=== PATIENT | male | born 1955 | race Caucasian/White ===

== ENCOUNTER → 2017-11-22 | Outpatient (CLI) | payer OTHER ==
[~2017-11-22] MED LIST: ASPI-496 PO; EZET10TA18 PO; INSU100I28 SQ-INSULIN; LISI-167 PO; METF850T PO; SIMV10TA3 PO
[2017-11-22 07:32] LABS: BASOPHILS # (AUTO) 0.04 x10^3/uL (0-0.1); BASOPHILS % (AUTO) 1 % (0-1); EOSINOPHILS # (AUTO) 0.28 x10^3/uL (0-0.4); EOSINOPHILS % (AUTO) 4 % (1-7); LYMPHOCYTES # (AUTO) 2.48 x10^3/uL (1-3.4); LYMPHOCYTES % (AUTO) 35 % (22-44); MD NO; MEAN CORPUSCULAR HEMOGLOBIN 29.5 pg (27.5-34.5); MEAN CORPUSCULAR HGB CONC 34.3 g/dL (33.2-36.2); MEAN CORPUSCULAR VOLUME 86.1 fL (81-97); MEAN PLATELET VOLUME 8.8 fL (7.4-10.4); MONOCYTES # (AUTO) 0.55 x10^3/uL (0.2-0.8); MONOCYTES % (AUTO) 8 % (2-9); NEUTROPHILS # (AUTO) 3.83 x10^3/uL (1.8-6.8); NEUTROPHILS % (AUTO) 53 % (42-75); PLATELET COUNT 182 x10^3/uL (130-400); RED BLOOD COUNT 5.24 x10^6/uL (4.38-5.82); RED CELL DISTRIBUTION WIDTH 14.4 % (9.4-14.8)
[2017-11-22 07:44] LABS: ALANINE AMINOTRANSFERASE 43 U/L (12-78); ALBUMIN 3.8 g/dL (3.4-5.0); ANION GAP 5 mmol/L (5-15); CALCIUM 9.5 mg/dL (8.5-10.1); CHLORIDE 108 mmol/L (98-107); CHOLESTEROL, TOTAL 172 mg/dL (140-239); CREATININE 1.07 mg/dL (0.7-1.3)
[2017-11-22 07:46] LABS: ALKALINE PHOSPHATASE 75 U/L (45-117); BILIRUBIN,TOTAL 0.5 mg/dL (0.2-1.0); CHOL/HDL RATIO 4.3; HDL CHOL % 23 % (26-37); HDL CHOLESTEROL (DIRECT) 40 mg/dL (40-60); LDL CHOLESTEROL,CALCULATED 59 mg/dL (54-169); LDL/HDL RATIO 1.5 (0.5-3.0); TRIGLYCERIDES 364 mg/dL (50-200); VLDL CHOLESTEROL 73 mg/dL (0-25)
[2017-11-22 08:40] LABS: HEMOGLOBIN A1C 8.7 % (4.2-6.3)
== END | disposition home or self-care (01) ==
LOC: LAB 07:09
PROVIDERS: ATTEND Family Medicine
DX: Z12.5 Encounter for screening for malignant neoplasm of prostate (principal); E11.65 Type 2 diabetes mellitus with hyperglycemia; E78.5 Hyperlipidemia, unspecified; I10 Essential (primary) hypertension
CPT/HCPCS: 36415; 80053; 80061; 82043; 83036; 84153; 84154; 85025; G0103

== ENCOUNTER → 2018-02-27 | Outpatient (CLI) | payer OTHER ==
[2018-02-27 07:43] LABS: ALANINE AMINOTRANSFERASE 44 U/L (12-78); ALBUMIN 3.9 g/dL (3.4-5.0); ANION GAP 10 mmol/L (5-15); CALCIUM 9.5 mg/dL (8.5-10.1); CHLORIDE 106 mmol/L (98-107); CREATININE 1.14 mg/dL (0.7-1.3)
[2018-02-27 07:45] LABS: ALKALINE PHOSPHATASE 84 U/L (45-117); BILIRUBIN,TOTAL 0.5 mg/dL (0.2-1.0); CHOL/HDL RATIO 5.7; CHOLESTEROL, TOTAL 226 mg/dL (140-239); HDL CHOL % 18 % (26-37); HDL CHOLESTEROL (DIRECT) 40 mg/dL (40-60); TOTAL PROTEIN 7.3 g/dL (6.4-8.2); TRIGLYCERIDES 719 mg/dL (50-200)
[2018-02-27 08:25] LABS: HEMOGLOBIN A1C 10.6 % (4.2-6.3)
== END | disposition home or self-care (01) ==
LOC: LAB 07:15
PROVIDERS: ATTEND Family Medicine
DX: E11.65 Type 2 diabetes mellitus with hyperglycemia (principal); E78.5 Hyperlipidemia, unspecified
CPT/HCPCS: 36415; 80053; 80061; 83036

== ENCOUNTER → 2018-03-19 | Outpatient (CLI) | payer OTHER | END | disposition home or self-care (01) | LOC: LAB 07:14 | PROVIDERS: ATTEND Family Medicine | DX: E11.65 Type 2 diabetes mellitus with hyperglycemia (principal) | CPT/HCPCS: 36415; 83519; 83525 ==

== ENCOUNTER → 2019-09-14 | Outpatient (CLI) | payer OTHER ==
[~2019-09-14] MED LIST changes: -EZET10TA18 PO; +EZET10TA70 PO; +OMNIPAQUE 350 MG/ML, 100ML BOTTLE ONE
[2019-09-14 12:28] LABS: CREATININE 1.03 mg/dL (0.7-1.3)
== END | disposition home or self-care (01) ==
LOC: RAD 11:53
PROVIDERS: ATTEND Family Medicine
DX: E11.65 Type 2 diabetes mellitus with hyperglycemia (principal); D71 Functional disorders of polymorphonuclear neutrophils
CPT/HCPCS: 36415; 74160; 82565; Q9967

== ENCOUNTER 2020-02-17 07:20 | Outpatient (CLI) | payer OTHER ==
[~2020-02-17 07:20] MED LIST changes: -OMNIPAQUE 350 MG/ML, 100ML BOTTLE ONE; +SIMV10TA18 PO; -SIMV10TA3 PO
[2020-02-17 07:50] LABS: ALANINE AMINOTRANSFERASE 36 U/L (12-78); ALBUMIN 3.4 g/dL (3.4-5.0); ANION GAP 4 mmol/L (5-15); CALCIUM 9.3 mg/dL (8.5-10.1); CHLORIDE 104 mmol/L (98-107); CREATININE 0.96 mg/dL (0.7-1.3)
[2020-02-17 07:53] LABS: ALKALINE PHOSPHATASE 79 U/L (45-117); BILIRUBIN,TOTAL 0.8 mg/dL (0.2-1.0); TOTAL PROTEIN 6.6 g/dL (6.4-8.2)
== END 2020-02-17 23:59 | disposition home or self-care (01) ==
LOC: LAB 07:20
PROVIDERS: ATTEND Family Medicine
DX: E11.65 Type 2 diabetes mellitus with hyperglycemia (principal)
CPT/HCPCS: 36415; 80053; 83036

== ENCOUNTER 2020-02-29 08:32 | Outpatient (CLI) | payer OTHER ==
[2020-02-29] MEDS ORDERED: OMNIPAQUE 350 MG/ML, 100ML BOTTLE ONE (14:01)
== END 2020-02-29 23:59 | disposition home or self-care (01) ==
LOC: CFH 08:32
PROVIDERS: ATTEND Family Medicine
DX: J98.4 Other disorders of lung (principal); R63.4 Abnormal weight loss; J84.10 Pulmonary fibrosis, unspecified; K40.20 Bilateral inguinal hernia, without obstruction or gangrene, not specified as recurrent
CPT/HCPCS: 71260; 72193; Q9967

== ENCOUNTER → 2020-07-22 | Outpatient (CLI) | payer OTHER ==
[2020-07-22 07:29] LABS: ALANINE AMINOTRANSFERASE 45 U/L (12-78); ALBUMIN 3.2 g/dL (3.4-5.0); ANION GAP 4 mmol/L (5-15); CHLORIDE 109 mmol/L (98-107); CHOLESTEROL, TOTAL 138 mg/dL (140-239); CREATININE 0.99 mg/dL (0.7-1.3); TRIGLYCERIDES 145 mg/dL (50-200); VLDL CHOLESTEROL 29 mg/dL (0-25)
[2020-07-22 07:32] LABS: ALKALINE PHOSPHATASE 85 U/L (45-117); BILIRUBIN,TOTAL 0.6 mg/dL (0.2-1.0); CHOL/HDL RATIO 2.1; HDL CHOL % 49 % (26-37); HDL CHOLESTEROL (DIRECT) 67 mg/dL (40-60); LDL CHOLESTEROL,CALCULATED 42 mg/dL (54-169); LDL/HDL RATIO 0.6 (0.5-3.0); TOTAL PROTEIN 6.6 g/dL (6.4-8.2)
== END | disposition home or self-care (01) ==
LOC: LAB 06:53
PROVIDERS: ATTEND Nurse Practitioner
DX: I10 Essential (primary) hypertension (principal); E11.65 Type 2 diabetes mellitus with hyperglycemia; E78.5 Hyperlipidemia, unspecified; G47.33 Obstructive sleep apnea (adult) (pediatric)
CPT/HCPCS: 36415; 80053; 80061; 82043; 82570; 83036; 84681

== ENCOUNTER 2020-11-17 12:59 | Emergency (ER) | payer OTHER ==
[2020-11-17 13:12] VITALS: BP 148/85
--- NOTE | 2020-11-17 13:15 | NUR ---
PT PRESENTS TO ED WITH C/O GENERALIZED ABD PAIN, N/V/D X 2 DAYS, DENIES HEMATEMESIS/HEMATOCHEZIA. PT HAS A KNOWN ABDOMINAL HERNIA WHICH HAS PREVIOUSLY CAUSED SYMPTOMS, PT STATES HE DOES NOT ABDOMINAL WORKUP HERNIA IS STABLE. PT REQUESTS COVID TEST AND DISCHARGE. BP AND SPO2 MONITORS IN PLACE. CALL LIGHT IN REACH. AWAITING PROVIDER AND ORDERS.
--- NOTE | 2020-11-17 13:20 | NUR ---
late entry for 1320: report given to LAKEISHA Burt who is assuming care.
[2020-11-17] MEDS ORDERED: ONDANSETRON ODT 4 MG ONE (13:42)
--- NOTE | 2020-11-17 13:45 | NUR ---
LAB IN TO DRAW. ZOFRAN GIVEN PER ERP ORDER. CALL LIGHT WITHIN REACH.
[2020-11-17 13:57] LABS: BASOPHILS % (AUTO) 0 % (0-1); EOSINOPHILS % (AUTO) 3 % (1-7); LYMPHOCYTES % (AUTO) 22 % (22-44); MEAN CORPUSCULAR HEMOGLOBIN 30.6 pg (27.5-34.5); MEAN CORPUSCULAR HGB CONC 34.1 g/dL (33.2-36.2); MEAN PLATELET VOLUME 7.5 fL (7.4-10.4); MONOCYTES % (AUTO) 7 % (2-9); NEUTROPHILS % (AUTO) 68 % (42-75); PLATELET COUNT 174 x10^3/uL (130-400); RED BLOOD COUNT 5.31 x10^6/uL (4.38-5.82); RED CELL DISTRIBUTION WIDTH 13.3 % (9.4-14.8)
[2020-11-17 13:59] LABS: MD NO
[2020-11-17] MEDS ORDERED: ONDANSETRON ODT 4 MG PO ONE (14:00)
[2020-11-17 14:12] LABS: ALANINE AMINOTRANSFERASE 41 U/L (12-78); ALBUMIN 3.8 g/dL (3.4-5.0); ANION GAP 7 mmol/L (5-15); CALCIUM 9.9 mg/dL (8.5-10.1); CHLORIDE 105 mmol/L (98-107)
[2020-11-17 14:15] LABS: ALKALINE PHOSPHATASE 82 U/L (45-117); BILIRUBIN,TOTAL 0.8 mg/dL (0.2-1.0); CREATININE 0.93 mg/dL (0.7-1.3); TOTAL PROTEIN 6.8 g/dL (6.4-8.2)
--- NOTE | 2020-11-17 14:42 | NUR ---
PT DECLINING STOOL AND UA TESTS. ERP INFORMED. PT DISCHARGED HOME.
== END 2020-11-17 14:44 | disposition home or self-care (01) ==
LOC: ED 14:00
DX: R11.2 Nausea with vomiting, unspecified (principal); Z20.822 Contact with and (suspected) exposure to COVID-19; R19.7 Diarrhea, unspecified; R10.9 Unspecified abdominal pain; E78.00 Pure hypercholesterolemia, unspecified; I10 Essential (primary) hypertension; E11.9 Type 2 diabetes mellitus without complications
CPT/HCPCS: 80053; 85025; 87635; 99283; Q0162

== ENCOUNTER → 2021-06-01 | Outpatient (CLI) | payer OTHER ==
[2021-06-01 07:24] LABS: BASOPHILS % (AUTO) 1 % (0-1); EOSINOPHILS % (AUTO) 6 % (1-7); LYMPHOCYTES % (AUTO) 32 % (22-44); MEAN CORPUSCULAR HEMOGLOBIN 30.7 pg (27.5-34.5); MEAN CORPUSCULAR HGB CONC 33.5 g/dL (33.2-36.2); MEAN PLATELET VOLUME 7.5 fL (7.4-10.4); MONOCYTES % (AUTO) 8 % (2-9); NEUTROPHILS % (AUTO) 53 % (42-75); PLATELET COUNT 186 x10^3/uL (130-400); RED BLOOD COUNT 5.11 x10^6/uL (4.38-5.82); RED CELL DISTRIBUTION WIDTH 13.7 % (9.4-14.8)
[2021-06-01 07:34] LABS: ALBUMIN 3.1 g/dL (3.4-5.0); CALCIUM 9.6 mg/dL (8.5-10.1)
[2021-06-01 07:38] LABS: ALANINE AMINOTRANSFERASE 60 U/L (12-78); ALKALINE PHOSPHATASE 91 U/L (45-117); BILIRUBIN,TOTAL 0.7 mg/dL (0.2-1.0); CHOL/HDL RATIO 3.2; CHOLESTEROL, TOTAL 213 mg/dL (140-239); CREATININE 0.99 mg/dL (0.7-1.3); HDL CHOL % 31 % (26-37); HDL CHOLESTEROL (DIRECT) 66 mg/dL (40-60); LDL CHOLESTEROL,CALCULATED 92 mg/dL (54-169); LDL/HDL RATIO 1.4 (0.5-3.0); TOTAL PROTEIN 6.6 g/dL (6.4-8.2); TRIGLYCERIDES 275 mg/dL (50-200); VLDL CHOLESTEROL 55 mg/dL (0-25)
[2021-06-01 07:45] LABS: ANION GAP 4 mmol/L (5-15); CHLORIDE 108 mmol/L (98-107)
== END | disposition home or self-care (01) ==
LOC: LAB 07:04
PROVIDERS: ATTEND Internal Medicine
DX: E11.65 Type 2 diabetes mellitus with hyperglycemia (principal); E78.5 Hyperlipidemia, unspecified; I10 Essential (primary) hypertension
CPT/HCPCS: 36415; 80053; 80061; 82043; 82570; 83036; 85025